=== PATIENT | female | born 1935 | race Caucasian/White ===

== ENCOUNTER 2022-08-30 06:30 | Day surgery (SDC) | payer OTHER ==
[2022-08-25 10:57] LABS: Absolute Lymphocytes (CBC) 1.4 K/uL (0.7-4.9); Lymphocytes % 18.5 % (15.3-44.8); MCV 96.6 fL (80-100); MPV 8.3 fL (7.6-11.3); RBC Red Blood Cell Count 3.83 M/uL (3.86-4.86)
[2022-08-25 11:04] LABS: Potassium 3.9 mEq/L (3.5-5.1)
[2022-08-30] MEDS ORDERED: Ringers Lactate 1,000 ML IV ONE (06:51)
[2022-08-30] MEDS ORDERED: CEFAZOLIN SODIUM 1 GM/VIAL ONE (06:51)
[2022-08-30] MEDS ORDERED: BUPIVACAINE 0.5% PF 10 ML VIAL ONE (07:21)
[2022-08-30] MEDS ORDERED: LIDOCAINE 1% 20 ML MDV ONE (07:21)
[2022-08-30] MEDS ORDERED: FENTANYL CITR 100 MCG/2 ML ONE (07:23)
[2022-08-30] MEDS ORDERED: LIDOCAINE 2% MPF 5 ML VIAL ONE (07:23)
[2022-08-30] MEDS ORDERED: propofoL 200 MG/20 ML VIAL IV ONE ×2 (07:23→08:28)
--- NOTE | 2022-08-30 09:31 | RAD REPORT ---
EXAM DESCRIPTION: RAD - Fluoroscopy <1 Hour - 08/30/2022 9:15 am CLINICAL HISTORY: HAMMER TOE, RT FOOT SCREW PLACEMENT COMPARISON: No comparisons FINDINGS: Fluoroscopy time: 14.3 seconds
[2022-08-31 08:22] VITALS: BP 128/81; O2SAT 98
[2022-08-31 10:49] VITALS: TEMP 97
== END 2022-08-30 10:05 | disposition home or self-care (01) ==
LOC: OR 06:30
PROVIDERS: ATTEND Podiatrist Foot & Ankle Surgery
PROC: 0L8V0ZZ Division of Right Foot Tendon, Open Approach (ICD-10-PCS; principal; 2022-08-30 07:30)
DX: M20.41 Other hammer toe(s) (acquired), right foot (principal); I10 Essential (primary) hypertension; E78.00 Pure hypercholesterolemia, unspecified; I25.10 Atherosclerotic heart disease of native coronary artery without angina pectoris; N18.4 Chronic kidney disease, stage 4 (severe)
CPT/HCPCS: 85025; 80048; 36415; 28285; J2704 ×2; J2001 ×2; J3010; J7120; J0690; 76000

== ENCOUNTER 2023-02-21 10:57 | Day surgery (SDC) | payer OTHER ==
[2023-02-17 14:29] LABS: Absolute Lymphocytes (CBC) 1.6 K/uL (0.7-4.9); Hematocrit 37.5 % (36.0-45.0); Lymphocytes % 19.3 % (15.3-44.8); MCV 93.9 fL (80-100); MPV 8.1 fL (7.6-11.3); Platelets 293 thou/uL (152-406); RBC Red Blood Cell Count 3.99 M/uL (3.86-4.86)
[2023-02-17 14:32] LABS: Protime INR 0.99
[2023-02-17 14:45] LABS: Potassium 3.4 mEq/L (3.5-5.1)
--- NOTE | 2023-02-18 13:54 | EKG ---
Test Date: 2023-02-17 Test Time: 13:31:36 Floor Layer Tile: BRIAN MEASUREMENT RESULTS: Intervals: Rate: 76 WY: 142 QRSD: 84 QT: 374 QTc: 420 [place]: P: 60 WY: 142 QRS: 72 T: 90 INTERPRETIVE STATEMENTS: Normal sinus rhythm Possible Left atrial enlargement Nonspecific ST and T wave abnormality Abnormal ECG Compared to ECG 07/19/2022 10:14:58 Sinus bradycardia no longer present Right-axis deviation no longer present ST (T wave) deviation still present Electronically Signed On 02-18-23 13:50:56 CDT by Hima Crook
[~2023-02-21 10:57] MED LIST: HEPA 1000U/500MLS 2,000 UNIT/1,000 ML BAG IV ONE; LIDOCAINE 1% 20 ML MDV ONE
[2023-02-21] MEDS ORDERED: NA CHLORIDE 0.9% 500 ML ONE (11:21)
[2023-02-21] MEDS ORDERED: ATROPINE SULF 1 MG/10 ML SYR IV ONE (11:25)
[2023-02-21] MEDS ORDERED: FENTANYL CITR 100 MCG/2 ML ONE (11:25)
[2023-02-21] MEDS ORDERED: MIDAZOLAM HCL 2 MG/2 ML INJ ONE (11:25)
[2023-02-21] MEDS ORDERED: METHYLPREDNISOLONE 125 MG INJ ONE (11:37)
[2023-02-21] MEDS ORDERED: DIPHENHYDRAMINE 50 MG/ML VIAL ONE (11:37)
[2023-02-21 13:17] VITALS: TEMP 98
[2023-02-21 14:53] VITALS: O2SAT 99
[2023-02-21 15:50] VITALS: BP 130/62
--- NOTE | 2023-02-21 19:58 | OP ---
Date of Procedure: 02/21/2023 Surgeon: MANSOOR SHAFFER Procedure Performed: Selective bilateral carotid angiogram. Diagnosis: Carotid stenosis by Doppler. Access: Right femoral artery 4-Serbian closed with manual pressure. Complications: None. Bleeding: Less than 20 mL. Total contrast was used 23 mL. Description Of Procedure: After risks, benefits, and alternatives were explained, patient agreed to procedure and signed informal consent. Patient was brought into cardiac catheterization laboratory, prepped and draped in usual sterile fashion. Then, I accessed right femoral artery using micropunctu re kit, ultrasound guidance and fluoroscopy, placed 4-Serbian [place] sheath and took 4-Serbian 3DRC c atheter over J-wire into the aortic arch and engaged the right common carotid, took standard views an d then left common carotid, took standard views and then removed the catheter and the sheath, and man ual pressure was used for closure with good hemostasis. Findings: 1.Right common carotid is normal up until the bulb, it becomes stenotic 50% to 60%, extends to the r ight internal carotid and the right external carotid is normal. 2.The left common carotid is normal. Left internal carotid has 10% and left external carotid is nor mal. Conclusion: Moderate carotid stenosis especially on the right. Plan: Medical management. SR/MODL Voice ID: [id number] Report ID: [id number]
== END 2023-02-21 15:40 | disposition home or self-care (01) ==
LOC: CCL 10:57
PROVIDERS: ATTEND Internal Medicine
DX: I65.23 Occlusion and stenosis of bilateral carotid arteries (principal); I25.10 Atherosclerotic heart disease of native coronary artery without angina pectoris; R00.2 Palpitations; I10 Essential (primary) hypertension; E78.5 Hyperlipidemia, unspecified; Z87.891 Personal history of nicotine dependence; Z79.899 Other long term (current) drug therapy; Z88.8 Allergy status to other drugs, medicaments and biological substances; Z91.041 Radiographic dye allergy status
CPT/HCPCS: 36222; 36415; 76937; 80048; 85025; 85610; 85730; 93005; C1893; J0461; J1200; J2001; J2250; J2930; J3010; J7040; Q9966

== ENCOUNTER 2023-06-30 08:10 | Day surgery (SDC) | payer OTHER ==
[2023-06-29 10:34] LABS: Hematocrit 42.5 % (36.0-45.0); Lymphocytes % 12.9 % (15.3-44.8); MCV 96.6 fL (80-100); MPV 7.7 fL (7.6-11.3); Platelets 295 thou/uL (152-406)
[2023-06-29 10:44] LABS: Protime INR 1.01
[2023-06-29 10:46] LABS: Potassium 3.9 mEq/L (3.5-5.1)
[2023-06-30] MEDS: NA CHLORIDE 0.9% 500 ML ONE (08:13)
[2023-06-30] MEDS ORDERED: HEPA 1000U/500MLS 2,000 UNIT/1,000 ML BAG IV ONE (09:17)
[2023-06-30] MEDS ORDERED: LIDOCAINE 1% 20 ML MDV ONE (09:17)
[2023-06-30] MEDS ORDERED: NITROGLYCERIN/D5W 25 MG/250 ML BTL IV ONE (09:17)
[2023-06-30] MEDS ORDERED: MIDAZOLAM HCL 2 MG/2 ML INJ ONE (09:18)
[2023-06-30] MEDS ORDERED: FENTANYL CITR 100 MCG/2 ML ONE (09:18)
[2023-06-30] MEDS ORDERED: TICAGRELOR 90 MG TABLET PO ONE (09:18)
[2023-06-30] MEDS ORDERED: VERAPAMIL HCL 10 MG/4 ML VIAL IV ONE (09:18)
[2023-06-30] MEDS ORDERED: HEPARIN 5000 UNIT/ML 1 ML VIAL ONE (09:18)
[2023-06-30] MEDS ORDERED: ASPIRIN 325 MG TAB ONE (09:19)
[2023-06-30] MEDS ORDERED: HEPARIN 10,000 UNIT/10 ML VIAL IV ONE (09:19)
[2023-06-30] MEDS ORDERED: CLOPIDOGREL 75 MG TABLET ONE (09:19)
[2023-06-30] MEDS ORDERED: METHYLPREDNISOLONE 125 MG INJ ONE (09:23)
[2023-06-30] MEDS ORDERED: DIPHENHYDRAMINE 50 MG/ML VIAL ONE (09:24)
[2023-06-30 13:27] VITALS: O2SAT 96
[2023-06-30 13:49] VITALS: BP 124/41
--- NOTE | 2023-06-30 16:09 | EKG ---
Test Date: 2023-06-29 Test Time: 10:31:46 Relationship Mgr: BRIAN MEASUREMENT RESULTS: Intervals: Rate: 60 RI: 84 QRSD: 92 QT: 420 QTc: 420 [place]: P: 73 RI: 84 QRS: 90 T: 80 INTERPRETIVE STATEMENTS: Sinus rhythm with short RI Rightward axis ST abnormality, possible digitalis effect Abnormal ECG Compared to ECG 02/17/2023 13:31:36 Short RI interval now present Right-axis deviation now present ST (T wave) deviation still present Electronically Signed On 06-30-23 16:05:11 B[employer] ESTIMATOR by Hima Crook
== END 2023-06-30 14:20 | disposition home or self-care (01) ==
LOC: CCL 08:10
PROVIDERS: ATTEND Internal Medicine
DX: I25.110 Atherosclerotic heart disease of native coronary artery with unstable angina pectoris (principal); T82.855A Stenosis of coronary artery stent, initial encounter; R00.1 Bradycardia, unspecified; I65.29 Occlusion and stenosis of unspecified carotid artery; E78.2 Mixed hyperlipidemia; Z87.891 Personal history of nicotine dependence; Z79.899 Other long term (current) drug therapy; Z88.1 Allergy status to other antibiotic agents; Z88.8 Allergy status to other drugs, medicaments and biological substances; Z82.49 Family history of ischemic heart disease and other diseases of the circulatory system
CPT/HCPCS: 93005; 85025; 80048; 36415; 85610; 85347 ×2; 85730; 93458; 76937; C1893; Q9966; C1725; C9600; J1644; J2001; J2250; J3010; J7040; 99152; 99153; J1200; J2930